=== PATIENT | male | born 1970 | race Caucasian/White ===

== ENCOUNTER 2017-04-11 17:08 | Emergency (ER) | payer BC ==
[2017-04-11 17:41] VITALS: BP 134/88
[2017-04-11] MEDS ORDERED: Sodium Chloride 0.9% 10 ML Syringe FLUSH PRN (17:42)
--- NOTE | 2017-04-11 17:47 | EDM.PDOC ---
<Joseph Gracia - Last Filed: 04/11/17 18:56> ED HPI GENERAL MEDICAL PROBLEM - General Chief Complaint: Respiratory Problem Stated Complaint: CHEST PAIN, DIFFICULTY BREATHING Time Seen by Provider: 04/11/17 17:43 Source of Information: Reports: Patient History Limitations: Reports: No Limitations - History of Present Illness INITIAL COMMENTS - FREE TEXT/NARRATIVE: 47 yo male presents with pain to left lateral chest that has been getting progressively worse today. States that he woke with pain but about an hour ago it increased and now it is hard to breath. Denies pain elsewhere. states initially pain radiated to left shoulder but has subsided. No other complaints. Onset: Today, Gradual Duration: Getting Worse Location: Reports: Chest Quality: Reports: Ache, Sharp Severity: Moderate Improves with: Reports: None Worsens with: Reports: Breathing Context: Reports: Activity Associated Symptoms: Reports: No Other Symptoms Left Chest Pain Score (Numeric/FACES): 9 - Related Data Allergies Allergy/AdvReac Type Severity Reaction Status Date / Time No Known Allergies Allergy Verified 04/11/17 17:26 Home Meds: Home Meds Acetaminophen [Tylenol Extra Strength] 500 mg PO QID PRN 01/27/17 [History] Aspirin [Ecotrin] 81 mg PO DAILY 01/27/17 [History] FLUoxetine HCl [Prozac] 20 mg PO DAILY 01/27/17 [History] Gabapentin [Neurontin] 300 mg PO DAILY 01/27/17 [History] Latanoprost [Xalatan 0.005% Ophth Soln] 2.5 ml EYEBOTH BEDTIME 01/27/17 [History ] Losartan/Hydrochlorothiazide [Hyzaar 50-12.5 Tablet] 1 each PO DAILY 01/27/17 [ History] Multivitamin [Multi-Vitamin Daily] 1 each PO DAILY 01/27/17 [History] Timolol Maleate [Timoptic 0.25% Ophth Soln] 5 ml EYEBOTH BID 01/27/17 [History] Triamcinolone Acetonide [Nasacort] 10.8 ml NS BID PRN 01/27/17 [History] atorvaSTATin [Lipitor] 10 mg PO DAILY 01/27/17 [History] metFORMIN [Glucophage XR] 500 mg PO DAILY 01/27/17 [History] Past Medical History HEENT History: Reports: Glaucoma, Impaired Vision Cardiovascular History: Reports: High Cholesterol, Hypertension Psychiatric History: Reports: Anxiety, Depression Endocrine/Metabolic History: Reports: Diabetes, Type II Dermatologic History: Reports: Other (See Below) Other Dermatologic History: acne - Infectious Disease History Infectious Disease History: Reports: Chicken Pox, Hepatitis A, Shingles Social & Family History - Tobacco Use Smoking Status *Q: Former Smoker Used Tobacco, but Quit: Yes Month Tobacco Last Used: unknown Tobacco Use Comment: quit 20 years ago - Recreational Drug Use Recreational Drug Use: No ED ROS GENERAL - Review of Systems Review Of Systems: ROS reveals no pertinent complaints other than HPI. ED EXAM, GENERAL - Physical Exam Exam: See Below Exam Limited By: No Limitations General Appearance: Alert, WD/WN, No Apparent Distress Eye Exam: Bilateral Eye: PERRL Ears: Normal External Exam, Hearing Grossly Normal Throat/Mouth: Normal Inspection, Normal Lips, Normal Teeth, Normal Gums, Normal Oropharynx, Normal Voice, No Airway Compromise Head: Atraumatic, Normocephalic Neck: Normal Inspection, Supple, Non-Tender, Full Range of Motion Respiratory/Chest: No Respiratory Distress, Normal Breath Sounds, No Accessory Muscle Use, Chest Non-Tender, Crackles (Bilateral lower lobes) Cardiovascular: Normal Peripheral Pulses, Regular Rate, Rhythm, No Edema, No Gallop, No JVD, No Murmur, No Rub GI/Abdominal: Normal Bowel Sounds, Soft, Non-Tender, No Organomegaly, No Distention, No Abnormal Bruit, No Mass Back Exam: Normal Inspection, Full Range of Motion, NT Extremities: Normal Inspection, Normal Range of Motion, Non-Tender, Normal Capillary Refill, No Pedal Edema Neurological: Alert, Oriented, CN II-XII Intact, Normal Cognition, Normal Gait, No Motor/Sensory Deficits Skin Exam: Warm, Dry, Intact, Normal Color, No Rash Course - Vital Signs Last Recorded V/S: Last Vital Signs Temp 37.0 C 04/11/17 17:15 Pulse 82 04/11/17 17:15 Resp 20 04/11/17 17:15 BP 134/88 04/11/17 17:15 Pulse Ox 98 04/11/17 17:15 - Orders/Labs/Meds Orders: Active Orders 24 hr Category Date Time Status EKG Documentation Completion [RC] STAT Care 04/11/17 17:42 Active Orphenadrine [Norflex] Med 04/11/17 19:00 Active 60 mg IM Q12H Sodium Chloride 0.9% [Saline Flush] Med 04/11/17 17:42 Active 10 ml FLUSH ASDIRECTED PRN Saline Lock Insert [OM.PC] Stat Oth 04/11/17 17:42 Ordered Medication Orders Orphenadrine Citrate (Norflex) 60 mg IM Q12H LANDRY Last Admin: 04/11/17 19:36 Dose: 60 mg Sodium Chloride (Saline Flush) 10 ml FLUSH ASDIRECTED PRN PRN Reason: Keep Vein Open Last Admin: 04/11/17 19:42 Dose: 10 ml Labs: Laboratory Tests 04/11/17 04/11/17 04/11/17 Range/Units 17:25 17:25 17:25 WBC 9.9 (5.0-10.0) 10^3/uL RBC 4.85 (4.6-6.2) 10^6/uL Hgb 15.0 (14.0-18.0) g/dL Hct 43.3 (40.0-54.0) % MCV 89.3 (80-100) fL MCH 30.9 (27.0-34.0) pg MCHC 34.6 (33.0-35.0) g/dL Plt Count 308 (150-450) 10^3/uL Neut % (Auto) 61.9 (42.2-75.2) % Lymph % (Auto) 22.9 (20.5-50.1) % [place] % (Auto) 13.1 H (2-8) % Eos % (Auto) 1.8 (1.0-3.0) % Baso % (Auto) 0.3 (0.0-1.0) % Sodium 138 (135-145) mmol/L Potassium 3.9 (3.6-5.0) mmol/L Chloride 99 L (101-111) mmol/L Carbon Dioxide 25.0 (21.0-31.0) mmol/L Anion Gap 17.9 BUN 13 (7-18) mg/dL Creatinine 0.8 (0.6-1.3) mg/dL Est Cr Clr Drug Dosing 111.70 mL/min Estimated GFR (MDRD) > 60 BUN/Creatinine Ratio 16.25 Glucose 152 H (74-105) mg/dL Calcium 9.5 (8.4-10.2) mg/dl Total Bilirubin 0.7 (0.2-1.0) mg/dL AST 37 (10-42) IU/L ALT 40 (10-60) IU/L Alkaline Phosphatase 66 (42-121) IU/L Creatine Kinase 163 (26-174) IU/L Creatine Kinase Index 2.0 (0-2.4) % CK-MB (CK-2) 3.20 (0.4-4.7) ng/mL Troponin I < 0.02 (0.00-0.02) ng/ml B-Natriuretic Peptide 10 (0-100) pg/ml Total Protein 8.1 (6.7-8.2) g/dl Albumin 4.5 (3.2-5.5) g/dl Globulin 3.6 Albumin/Globulin Ratio 1.25 Meds: Medications Generic Name Dose Route Start Last Admin Trade Name Freq PRN Reason Stop Dose Admin Orphenadrine Citrate 60 mg 04/11/17 19:00 04/11/17 19:36 Norflex IM 60 mg Q12H LANDRY Administration Sodium Chloride 10 ml 04/11/17 17:42 04/11/17 19:42 Saline Flush FLUSH 10 ml ASDIRECTED PRN Administration Keep Vein Open Discontinued Medications Generic Name Dose Route Start Last Admin Trade Name Freq PRN Reason Stop Dose Admin Hydrocodone Bitart/Acetaminophen 1 tab 04/11/17 20:08 Idamay 325-10 Mg PO 04/11/17 20:09 ONETIME ONE Ketorolac Tromethamine 30 mg 04/11/17 18:33 04/11/17 19:34 Toradol IVPUSH 04/11/17 18:34 30 mg ONETIME ONE Administration - Re-Assessments/Exams Free Text/Narrative Re-Assessment/Exam: 04/11/17 18:54 Toradol did not relieve pain. Will give muscle relaxant as no acute findings on x-ray and labs Departure - Departure Disposition: Home, Self-Care 01 Clinical Impression: Back muscle spasm - Discharge Information Instructions: Back Pain, Adult Forms: ED Department Discharge Additional Instructions: 1) rest and avoid bending lifting straining next 48 hours 2) try ice or heat to area 3) follow up at clinic or recheck as needed rx given; flexeril 10mg bid prn x12 vicodin 5.325mg bid prn x 12 <Tera Ag - Last Filed: 04/11/17 20:14> Course - Re-Assessments/Exams Free Text/Narrative Re-Assessment/Exam: 04/11/17 20:11 s/p IM Rx = better but not 100% Departure - Departure Time of Disposition: 20:12 Condition: Good
[2017-04-11 18:05] LABS: CHLORIDE,CL 99 mmol/L (101-111); SODIUM,NA 138 mmol/L (135-145)
[2017-04-11] MEDS ORDERED: Ketorolac 30 MG/ML SDV IVPUSH ONE (18:33)
[2017-04-11] MEDS ORDERED: Acetaminophen/HYDROcodone 325-10 MG Tab PO ONE (20:08)
--- NOTE | 2017-04-20 10:38 | EKG ---
04/11/2017- SHAYNE ARRIETA - This is a 12-lead EKG showing normal sinus rhythm with ventricular rate of 85 beats per minute. It shows old indeterminate age inferior old infract. Normal [place] interval and QRS duration. Normal axis. No significant ST-T changes. [facility] /[id number]
== END 2017-04-11 20:25 | disposition home or self-care (01) ==
LOC: DL.ED 17:08
DX: M62.830 Muscle spasm of back (principal); I10 Essential (primary) hypertension; E78.00 Pure hypercholesterolemia, unspecified; F32.9 Major depressive disorder, single episode, unspecified; E11.9 Type 2 diabetes mellitus without complications; Z87.891 Personal history of nicotine dependence; Z79.82 Long term (current) use of aspirin; Z79.84 Long term (current) use of oral hypoglycemic drugs; Z79.899 Other long term (current) drug therapy
CPT/HCPCS: 36415; 71020; 80053; 82550; 82553; 83880; 84484; 85025; 93005; 96372; 96374; 99284; A9270; J1885; J2360; J7050

== ENCOUNTER 2021-03-24 12:05 | Emergency (ER) | payer BC ==
[2021-03-24 12:50] VITALS: PULSE 84
[2021-03-24] MEDS ORDERED: Fluorescein 1 MG Ophth Strip EYERT ONE (12:54)
[2021-03-24] MEDS ORDERED: Tetracaine HCl/PF 0.5% 4 ML Bottle EYERT ONE (12:54)
[2021-03-24] MEDS ORDERED: Gentamicin 0.3% Ophth Soln 5 ML Bottle EYERT ONE (12:55)
--- NOTE | 2021-03-24 13:24 | EDM.PDOC ---
Scribed by Nellie Nixon 03/24/21 1322 for Idris Mcgee MD ED HPI GENERAL MEDICAL PROBLEM - General Chief Complaint: Eye Problems Stated Complaint: [id number] RIGHT EYE SOMETHING STUCK IN SCRATCHED IT Time Seen by Provider: 03/24/21 12:49 Source of Information: Reports: Patient, RN, RN Notes Reviewed History Limitations: Reports: No Limitations - History of Present Illness INITIAL COMMENTS - FREE TEXT/NARRATIVE: Patient presents to ED by POV stating that he removed contact in right eye last night, felt foreign body and attempted to flush eye out. States perhaps scratched eye. States was up most of night working on it and states nothing makes it better. Denies pain, states only irritation. Onset Date: 03/23/21 Duration: Getting Worse Location: Reports: Other (right eye) Quality: Reports: Ache Severity: Moderate Improves with: Reports: None Worsens with: Reports: None Associated Symptoms: Reports: No Other Symptoms - Related Data Allergies Allergy/AdvReac Type Severity Reaction Status Date / Time No Known Allergies Allergy Verified 03/24/21 12:55 Home Meds: Home Meds Acetaminophen [Tylenol Extra Strength] 500 mg PO QID PRN 01/27/17 [History] Aspirin [Ecotrin] 81 mg PO DAILY 01/27/17 [History] FLUoxetine HCl [Prozac] 20 mg PO DAILY 01/27/17 [History] Gabapentin [Neurontin] 300 mg PO TID 01/27/17 [History] Latanoprost [Xalatan 0.005% Ophth Soln] 2.5 ml EYEBOTH BEDTIME 01/27/17 [History] Losartan/Hydrochlorothiazide [Hyzaar 50-12.5 Tablet] 1 each PO DAILY 01/27/17 [History] Multivitamin [Multi-Vitamin Daily] 1 each PO DAILY 01/27/17 [History] Timolol Maleate [Timoptic 0.25% Ophth Soln] 5 ml EYEBOTH BID 01/27/17 [History] Triamcinolone Acetonide [Nasacort] 10.8 ml NS BID PRN 01/27/17 [History] atorvaSTATin [Lipitor] 10 mg PO DAILY 01/27/17 [History] metFORMIN [Glucophage XR] 500 mg PO BID 01/27/17 [History] Past Medical History HEENT History: Reports: Glaucoma, Impaired Vision Cardiovascular History: Reports: High Cholesterol, Hypertension Psychiatric History: Reports: Anxiety, Depression Endocrine/Metabolic History: Reports: Diabetes, Type II Dermatologic History: Reports: Other (See Below) Other Dermatologic History: acne - Infectious Disease History Infectious Disease History: Reports: Chicken Pox, Hepatitis A, Shingles ED ROS GENERAL - Review of Systems Review Of Systems: Comprehensive ROS is negative, except as noted in HPI. ED EXAM GENERAL W FULL EYE - Physical Exam Exam: See Below Exam Limited By: No Limitations General Appearance: Alert, WD/WN, No Apparent Distress Eye Exam: Right Eye: Conjunctival Injection, Corneal Abrasion, Left Eye: Normal Inspection, Bilateral Eye: EOMI, PERRL Visual Acuity (R) 20/: 25 Visual Acuity (L) 20/: 25 With Correction: Yes Eyelids: Bilateral: Normal Appearance Conjunctiva & Sclera: Right: Conjunctival Edema, Injected, Left: Normal Appearance Cornea Exam: Right: Corneal Abrasion (with scleral abrasion), Left: Normal Appearance Extraocular Movements: Bilateral: Intact Pupils: Normal Accommodation Pupillary Size: Bilateral: 3 mm Pupillary Reaction: Bilateral: Brisk Anterior Chamber: Bilateral: Normal Appearance Throat/Mouth: Normal Voice Head: Atraumatic, Normocephalic Neck: Normal Inspection Respiratory/Chest: No Respiratory Distress Neurological: Alert, Oriented Psychiatric: Normal Mood Skin Exam: Warm, Dry, Normal Color ED EYE w/ Add Procedure - Eye Procedure Alcaine Drops Administered: Yes Eye FB Removal: Other (no FB present) Antibiotic Oinment/Drps Admin: Right Eye Course - Vital Signs Last Recorded V/S: Last Vital Signs Temp 97.2 F 03/24/21 12:50 Pulse 84 03/24/21 12:50 Resp 20 03/24/21 12:50 BP 150/110 H 03/24/21 12:50 Pulse Ox 96 03/24/21 12:50 - Orders/Labs/Meds Meds: Medications Discontinued Medications Generic Name Dose Route Start Last Admin Trade Name Freq PRN Reason Stop Dose Admin Fluorescein Sodium 1 mg 03/24/21 12:54 03/24/21 13:10 Fluorescein 1 Mg Ophth Strip EYERT 03/24/21 12:55 1 mg ONETIME ONE Administration Gentamicin Sulfate 1 ml 03/24/21 12:55 03/24/21 13:10 Gentamicin 0.3% Ophth Soln 5 Ml Bottle EYERT 03/24/21 12:56 1 ml ONETIME ONE Administration Tetracaine HCl 1 ml 03/24/21 12:54 03/24/21 13:09 Tetracaine Hcl/Pf 0.5% 4 Ml Bottle EYERT 03/24/21 12:55 1 ml ONETIME ONE Administration Departure - Departure Time of Disposition: 13:17 Disposition: Home, Self-Care 01 Condition: Good Clinical Impression: Corneal abrasion Qualifiers: Encounter type: initial encounter Laterality: right Qualified Code(s): S05.01XA - Injury of conjunctiva and corneal abrasion without foreign body, right eye, initial encounter - Discharge Information *PRESCRIPTION DRUG MONITORING PROGRAM REVIEWED*: No *COPY OF PRESCRIPTION DRUG MONITORING REPORT IN PATIENT KIEL: No Instructions: Corneal Abrasion Forms: ED Department Discharge Additional Instructions: Gentamicin Ophthalmic Solution 0.3%: Place one drop in right eye four times a day for five days. Tetracaine Ophthalmic Solution: Place one drop in right eye every six hours as needed for pain, for 24 hours only, then discard. No contact lens use for seven days. Wear sunglasses for comfort. May use over the counter Ibuprofen (Advil/Motrin) as needed for eye pain or headache. Do not rub or wipe your right eye. Follow with your eye doctor on Thursday or Thursday. Inform them that you were treated at the ER for a corneal abrasion and need an ER follow up visit. Sepsis Event Note (ED) - Focused Exam Vital Signs: Vital Signs Temp Pulse Resp BP Pulse Ox 03/24/21 12:50 97.2 F 84 20 150/110 H 96 I have read and agree with the documentation that has been completed regarding this visit. By signing this record, I attest that the documentation was completed in my physical presence and is an accurate record of the encounter.
[2021-03-24 13:28] VITALS: BP 144/95
== END 2021-03-24 13:32 | disposition home or self-care (01) ==
LOC: DL.ED 12:05
DX: S05.01XA Injury of conjunctiva and corneal abrasion without foreign body, right eye, initial encounter (principal); E78.00 Pure hypercholesterolemia, unspecified; I10 Essential (primary) hypertension; E11.9 Type 2 diabetes mellitus without complications; Z79.899 Other long term (current) drug therapy; Z79.82 Long term (current) use of aspirin; W22.8XXA Striking against or struck by other objects, initial encounter
CPT/HCPCS: 99283; A9270